=== PATIENT | female | born 1990 | race Caucasian/White ===

== ENCOUNTER 2016-09-05 21:21 | Outpatient (CLI) | payer MEDICAID ==
[2016-02-10 09:57] VITALS: BMI 25.8
[~2016-09-05 21:21] MED LIST: CLEOCIN HCL150 MG PO; HYDROCODONE-APA1 TAB PO; VIBRAMYCIN 100100 MG PO
[2016-09-05 21:56] LABS: BASOPHILS 0.1 % (0.0-2.0); EOSINOPHILS 2.2 % (0-7); HEMATOCRIT 33.2 % (36.0-48.0); IMMATURE GRANULOCYTES 0.6 % (0-5); LYMPHOCYTES 27.1 % (15-50); MCH 30.8 pg (26.0-34.0); MCHC 33.1 g/dL (31.0-37.0); MEAN PLATELET VOLUME 11.2 fL (7.4-10.4); MONOCYTES 8.6 % (2-11); NEUTROPHILS 61.4 % (40-80); PLATELET COUNT 186 10x3/uL (130-400); RBC 3.57 10x6/uL (4.00-5.40); RDW 14.3 % (11.5-14.5); WBC 8.2 10x3/uL (4.8-10.8)
[2016-09-05 22:05] LABS: APPEARANCE CLEAR (CLEAR); BILIRUBIN NEGATIVE (NEGATIVE); COLOR YELLOW (YELLOW); GLUCOSE NEGATIVE (NEGATIVE); KETONE NEGATIVE (NEGATIVE); LEUKOCYTE ESTERASE NEGATIVE (NEGATIVE); NITRITE NEGATIVE (NEGATIVE); PROTEIN NEGATIVE (NEGATIVE); SPECIFIC GRAVITY 1.015 (1.005-1.020); UROBILINOGEN NORMAL (NORMAL)
[2016-09-05 22:15] LABS: ALBUMIN 2.4 g/dL (3.4-5.0); ALKALINE PHOSPHATASE 53 U/L (46-116); ALT (SGPT) 28 U/L (10-68); BILIRUBIN - DIRECT 0.07 mg/dL (0.00-0.30); BILIRUBIN - INDIRECT 0.09 mg/dL (0.00-1.00); BILIRUBIN - TOTAL 0.16 mg/dL (0.2-1.3); CALC OSMOLALITY 285 mosm/kg (275-300); CALCIUM 7.8 mg/dL (8.5-10.1); CHLORIDE - SERUM 108 mmol/L (98-107); CREATININE - SERUM 0.6 mg/dL (0.6-1.3); GLUCOSE 127 mg/dL (74-106); POTASSIUM - SERUM 3.4 mmol/L (3.5-5.1); PROTEIN - SERUM 5.6 g/dL (6.4-8.2); SODIUM 143 mmol/L (136-145); UREA NITROGEN 11 mg/dL (7-18); URIC ACID 3.5 mg/dL (2.6-7.2); eGFR NON AFRICAN AMERICAN > 90 mL/min (90-120)
== END 2016-09-05 22:51 | disposition home or self-care (01) ==
LOC: D.LDO 21:21
PROVIDERS: Obstetrics & Gynecology
DX: O26.892 Other specified pregnancy related conditions, second trimester (principal); Z3A.26 26 weeks gestation of pregnancy; M79.605 Pain in left leg; M79.604 Pain in right leg; R10.9 Unspecified abdominal pain; R19.7 Diarrhea, unspecified

== ENCOUNTER 2016-11-12 16:06 | Outpatient (CLI) | payer MEDICAID ==
[2016-02-10 09:57] VITALS: BMI 25.8
== END 2016-11-13 15:15 | disposition home or self-care (01) ==
LOC: D.LD 16:06 → D.LDO 16:06 → D.LD 17:38 → D.LDO 11-13 15:15
DX: Z34.93 Encounter for supervision of normal pregnancy, unspecified, third trimester (principal); Z3A.35 35 weeks gestation of pregnancy; W19.XXXA Unspecified fall, initial encounter

== ENCOUNTER → 2016-11-21 16:31 | Outpatient (CLI) | payer MEDICAID ==
[2016-02-10 09:57] VITALS: BMI 25.8
== END | disposition home or self-care (01) ==
LOC: D.LDO 16:31
DX: Z34.83 Encounter for supervision of other normal pregnancy, third trimester (principal); Z3A.37 37 weeks gestation of pregnancy; R03.0 Elevated blood-pressure reading, without diagnosis of hypertension

== ENCOUNTER 2016-11-30 11:12 | Inpatient (IN) | payer MEDICAID ==
[~2016-11-30] VITALS: Ht 167.6 cm; Wt 123.8 kg
[2016-11-30 12:58] LABS: APPEARANCE HAZY (CLEAR); BILIRUBIN NEGATIVE (NEGATIVE); COLOR YELLOW (YELLOW); GLUCOSE NEGATIVE (NEGATIVE); KETONE NEGATIVE (NEGATIVE); LEUKOCYTE ESTERASE NEGATIVE (NEGATIVE); NITRITE NEGATIVE (NEGATIVE); PROTEIN NEGATIVE (NEGATIVE); SPECIFIC GRAVITY 1.015 (1.005-1.020); UROBILINOGEN NORMAL (NORMAL)
[2016-11-30 13:00] LABS: BACTERIA FEW /hpf (NONE SEEN); MUCUS >1+ /lpf (NONE SEEN); WHITE CELLS - URINE 0-5 /hpf (0-5)
[2016-11-30] MEDS ORDERED: ACETAMINOPHEN500 M1 (13:52)
[2016-11-30] MEDS ORDERED: PRENATAL COMPLE1 TAB PO (13:54)
[2016-11-30 14:33] LABS: BASOPHILS 0.1 % (0-2); EOSINOPHILS 1.3 % (0-7); HEMATOCRIT 36.4 % (36.0-48.0); HEMOGLOBIN 11.6 g/dL (12-16); IMMATURE GRANULOCYTES 1.1 % (0-5); MCH 28.7 pg (26.0-34.0); MCHC 31.9 g/dL (31.0-37.0); MCV 90.1 fL (80.0-100.0); MEAN PLATELET VOLUME 11.6 fL (7.4-10.4); NEUTROPHILS 69.5 % (40-80); PLATELET COUNT 214 10x3/uL (130-400); RBC 4.04 10x6/uL (4.00-5.40); RDW 13.9 % (11.5-14.5); WBC 8.5 10x3/uL (4.8-10.8)
[2016-11-30 14:40] LABS: CALC OSMOLALITY 273 mosm/kg (275-300); CALCIUM 8.4 mg/dL (8.5-10.1); CARBON DIOXIDE 22.5 mmol/L (21.0-32.0); CHLORIDE - SERUM 105 mmol/L (98-107); CREATININE - SERUM 0.5 mg/dL (0.6-1.3); GLUCOSE 89 mg/dL (74-106); POTASSIUM - SERUM 4.1 mmol/L (3.5-5.1); SODIUM 138 mmol/L (136-145); UREA NITROGEN 9 mg/dL (7-18); eGFR NON AFRICAN AMERICAN > 90 mL/min (90-120)
[2016-11-30 18:02] VITALS: BP 133/67; Ht 167.6 cm; Wt 123.8 kg
--- NOTE | 2016-11-30 18:29 | NUR ---
THE PATIENT REPORTS HER PAIN IS IMPROVING AND TOLERABLE
--- NOTE | 2016-11-30 18:30 | NUR ---
FUNDUS FIRM AT UMBILICUS WITH MODERATE LOCIA
[2016-11-30 18:46] VITALS: BP 124/88
--- NOTE | 2016-11-30 18:46 | NUR ---
PT RECEIVED TO ROOM 1273 FROM [facility] IN RECOVERY VIA BED. PT AAOx3, RATING PAIN 6/10. LEFT WRIST PIV INFUSING PITOCIN IN NS AT 125ML/H. OCCLUSIVE DRESSING OVER LOW TRANSVERSE ABD INCISION IS C/D/I. FF, ML, U/2. SMALL RUBRA LOCHIA WITHOUT CLOTS. HAMPTON CATH PLACED IN STAT LOCK ON INNER RIGHT THIGH. HAMPTON DRAINING CLEAR YELLOW URINE TO BEDSIDE DRAINAGE. SCD'S ON BILAT AND CONNECTED TO PUMP. PT INSTRUCTED ON INCENTIVE SPIROMETER AND COUGHING, UNDERSTANDING VERBALIZED. ICE PACK TO INCISION AND PT PROVIDED WITH SURGERY PILLOW TO BRACE INCISION. PT PROVIDED WITH ICE AND INSTRUCTED TO EAT SLOWLY AND REPORT ANY NAUSEA. UNDERSTANDING VERBALIZED. WILL REPORT OFF TO AWAITING PM SHIFT TO INITIATE SHEEP RANCHER LAUREN.
--- NOTE | 2016-11-30 18:55 | NUR ---
REPORT GIVEN TO PM SHIFT.
[2016-11-30 19:25] VITALS: BP 141/83; BP 150/77
--- NOTE | 2016-11-30 19:25 | NUR ---
RCVD PT FROM AM SHIFT. PT NEWLY ADMITTED FROM RECOVERY ROOM. PT SITTING UP IN BED HOB 45 DEGREES WITH INFANT SKIN TO SKIN. SEVERAL FAMILY MEMBERS IN ROOM. FAMILY ASKED TO LEAVE ROOM IN ORDER FOR THIS RN TO COMPLETE ASSESSMENT. FAMILY IS AGREEABLE AND COMPLIES. PT IS AAOX3 AND RATES PAIN 9/10 AT THIS TIME. VINYL TOP INSTALLER INITIATED AT THIS TIME WITH PLANS TO GIVE TORADOL LAUREN. BLE WITH LARGE DRESSING @ ABD WITH NO DRAINAGE NOTED ON DRESSING. PIV TO RT WRIST WITH NO ERYTHEMA OR EDEMA NOTED AT SITE. ICE PACK PLACED AT INCISION AREA. BREATH SOUNDS CLEAR & UNLABORED X2, BOWEL SOUNDS HYPOACTIVE X4. ADV PT ON CLEAR LIQUID DIET. PT VERBALIZED UNDERSTANDING. ADMIT HISTORY COMPLETED AT THIS TIME WELL. SCD'S PLACED @ BLE, CONNECTED TO PUMP AND PUMP FUNCTIONING PROPERLY. SMALL LOCHIA RUBRA NOTED ON PERIPAD WITH NO CLOTS NOTED. PT DENIES FURTHER NEEDS AT THIS TIME. WILL CONT. POC. BED LOW, WHEELS LOCKED, CL IN REACH, SIDE RAILS UP X2.
--- NOTE | 2016-11-30 19:40 | NUR ---
TORADOL 30MG/1ML GIVEN PER ORDERS. SEE EMAR. PT DENIES NEEDS AT THIS TIME.
[2016-11-30 20:25] VITALS: BP 136/74
--- NOTE | 2016-11-30 20:34 | NUR ---
CURRENT NS WITH 20 U PITOCIN INFUSION COMPLETE. OLD BAG DOWN, NEW BAG UP TO PRESENT TUBING. PT PRESSED RECRUITMENT OFFICER BUTTON AT THIS TIME. FAMILY REMAINS AT BEDSIDE. FAN PROVIDED PER PT REQUEST. ADV PT NOT TO PUT FAN DIRECTLY ON . PT VERBALIZED UNDERSTANDING AND DENIES FURTHER NEEDS.
[2016-11-30 20:57] VITALS: BP 144/75
--- NOTE | 2016-11-30 21:09 | NUR ---
FAMILY REMAINS IN ROOM, INFANT IN WARMER AT THIS TIME WITH FAMILY LOOKING ON. PT RATES CURRENT PAIN 6/10 AND TOLERABLE. PERIPAD CHANGED, WITH MOD. LOCHIA RUBRA NOTED AND 1 PEA SIZE CLOT. PERICARE DONE AT THIS TIME. ICE PACK PLACED BACK ON ABD AND BRACING WITH SMALL PILLOW TEACHING DONE. PT USED I.S. AND PULLED 2000ML. ADV PT TO DO I.S. 10X PER HR. PT VERBALIZED UNDERSTANDING. PT REPOSITIONED SELF UP IN BED WITH NO ASSISTANCE. BANANA POPSICLE PROVIDED PER PT REQUEST. PT DENIES FURTHER NEEDS AT THIS TIME.
--- NOTE | 2016-11-30 22:02 | NUR ---
SITTING UP IN BED WITH HOB AT 30 DEGREES. ABD. INCISION CLEAN AND DRY. LOCHIA RUBRA SCANT. PT. CHEERFUL. IV OF NS WITH 20U PITOCIN INFUSING AT 125CC/HR. HAMPTON PATENT AND DRAINING. SCDS ON AND FUNCTIONAL. PT. REQUESTING POPSICLE. SAME WILL BE GIVEN.
[2016-11-30 22:25] VITALS: BP 129/80
--- NOTE | 2016-11-30 23:00 | NUR ---
PT. AWAKE AND ORIENTED. ABD. INCISION CLEAN AND DRY. ICE CAP REFILLED AND PLACED AGAINST INCISION. INCENTIVE SPIROMETER USED AND OBTAINED 3000. SCDS ON AND FUNCTIONAL. CRANBERRY JUICE GIVEN AND ICE CHIPS SUPPLIED. PT. ENCOURAGED TO INCREASE FLUID INTAKE. LOCHIA RUBRA SCANT. FOB LYING ON SOFA WITH SKIN TO SKIN. IV OF NS WITH 20U PITOCIN ADDED INFUSING AT 125CC/HR.HAMPTON PATENT AND DRAINING.
--- NOTE | 2016-11-30 23:33 | NUR ---
PT RINGS CL. RN TO BEDSIDE. PT REQUESTS ASSISTANCE WITH BF. RANDELL NGUYEN RN NOTIFIED.
--- NOTE | 2016-12-01 00:02 | NUR ---
AT PRESENT. NBN NURSE ASSISTING PT. FOB REMAINS IN ROOM.
[2016-12-01 00:20] VITALS: BP 129/74
--- NOTE | 2016-12-01 00:25 | NUR ---
POSITION CHANGE FROM BACK TO RT. SIDE. SUPPORTED WITH PILLOWS. PT. DEMONSTRATED COUGHING AND DEEP BREATHING. FOB IN ROOM WITH PT. SCDS ON AND FUNCTIONAL. HAMPTON PATENT AND DRAINING.
--- NOTE | 2016-12-01 01:56 | NUR ---
PT LYING ON BACK AWAKE IN BED. PT DENIES PAIN OR NEEDS FOR PAIN MEDICATION AT THIS TIME. PT REPORTS PASSING MORE GAS AND HAVING BM STATING "I FEEL MUCH BETTER NOW THAT THINGS ARE MOVING." VSS. PT DENIES FURTHER NEEDS AT THIS TIME.
--- NOTE | 2016-12-01 02:04 | NUR ---
PT. LYING ON RT SIDE LOOKING AT PHONE. ASKED IF IT WAS TIME FOR INFANT. INFORMED PT. WAS UNSURE THAT WAS CHECKING ON HER. ASKED IF SHE WAS UNABLE TO SLEEP. PT. STATED THAT SHE HAD BEEN ASLEEP BUT HAS DREAMS WHERE SHE IS FALLING CAUSING HER TO JERK. DENIES ANY NEEDS AT THIS TIME.SCDS ON AND FUNCTIONAL. HAMPTON PATENT AND DRAINING.
--- NOTE | 2016-12-01 02:26 | NUR ---
PT C/O NAUSEA AND PAIN RATED 7/10. TORADOL 30 MG/1ML GIVEN PER ORDERS. SEE EMAR. ZOFRAN 4 MG/2ML GIVEN PER ORDERS FOR NAUSEA. PT REPOSITIONS SELF TO BACK WITH MINIMAL ASSISTANCE. NEW CHUCKS AND PERIPAD PLACED AT THIS TIME WITH SCANT LOCHIA RUBRA NOTED ON PERIPAD. Al ANNE RN TO ROOM WITH INFANT. PT DENIES FURTHER NEEDS AT THIS TIME. FOB REMAINS AT BEDSIDE. WILL CONT. TO MONITOR.
--- NOTE | 2016-12-01 03:00 | NUR ---
PAIN REASSESSMENT COMPLETE. PT SITTING UP IN BED WITH Al ANNE RN AT BEDSIDE ASSISTING WITH . PT REPORTS NAUSEA HAS SUBSIDED AND THAT PAIN IS "BETTER." PT DENIES FURTHER NEEDS AT THIS TIME.
--- NOTE | 2016-12-01 03:50 | NUR ---
TO PT. ROOM, PT. REPORTS THAT SHE WAS NAUSEATED WITH EMESIS WITH MINIMAL EMESIS. STATES SHE WOULD LIKE TO GET HAMPTON OUT AND AMBULATE. STATES SHE ALSO WANTS ABD. BINDER PRIOR TO AMBULATION AND MD IS AWARE.
--- NOTE | 2016-12-01 04:32 | NUR ---
NEW ORDERS RCVD PER DR PEREZ PT OCTOBER AMB. D/C HAMPTON CATH AND SL PIV. HAMPTON CATH REMOVED WITH CATH TIP INTACT. PT KATHRYN. WELL. 300 ML MARLON COLORED URINE NOTED IN UROMETER. PIV SL AT THIS TIME. ADV PT WILL BE SWITCHING TO PO MEDS. PT VERBALIZED UNDERSTANDING. INFANT LEFT IN ROOM WITH MOTHER. ID BANDS VERIFIED PER PROTOCOL. CONSENT FOR ABDOMINAL BINDER SIGNED. PT DENIES FURTHER NEEDS AT THIS TIME.
--- NOTE | 2016-12-01 05:53 | NUR ---
PT UP AND AMB IN ROOM. INFANT TO ROOM AFTER BLOOD SUGAR CHECK. DR PEREZ IN ROOM TO DISCUSS POC WITH PT. PT VERBALIZES UNDERSTANDING TO ALL. DR PEREZ REMOVED BIG BANDAGE OVER INCISION. STITCHES AND DERMABOND INTACT. INCISION C/D/I. PT DENIES FURTHER NEEDS AT THIS TIME.
[2016-12-01 06:32] LABS: BASOPHILS 0.3 % (0-2); EOSINOPHILS 1.2 % (0-7); HEMATOCRIT 34.5 % (36.0-48.0); IMMATURE GRANULOCYTES 0.6 % (0-5); LYMPHOCYTES 13.9 % (15-50); MCH 28.6 pg (26.0-34.0); MCHC 31.9 g/dL (31.0-37.0); MCV 89.8 fL (80.0-100.0); MEAN PLATELET VOLUME 11.7 fL (7.4-10.4); PLATELET COUNT 181 10x3/uL (130-400); RBC 3.84 10x6/uL (4.00-5.40); RDW 13.9 % (11.5-14.5); WBC 10.5 10x3/uL (4.8-10.8)
[2016-12-01 07:15] VITALS: BP 107/60
--- NOTE | 2016-12-01 07:49 | NUR ---
ASSESSMENT DONE. VERBAL RESPONSES APPRO TO QUESTIONS. UP AND ABOUT IN ROOM WHEN NEEDS TO VOID. NOTED 400CC URINE IN BATHROOM CONTAINER. PT STATES THAT WAS HER SECOND VOID. ABD INCISION CD&I. INSTRUCTED ON CARE OF INCISION. RATES PAIN A 7 ON SCALE OF 0-10.
--- NOTE | 2016-12-01 11:30 | NUR ---
AMBULATING IN HALLWAY. STATES SHE IS PASSING GAS.
--- NOTE | 2016-12-01 13:57 | NUR ---
UP AND ABOUT IN ROOM. DENIES WANTING PAIN MEDICATION EXCEPT THAT STATES WILL TAKE A IBUPROFEN WHEN NEXT POSSIBLE TIME. NO REQUESTS.
[2016-12-01 13:59] VITALS: BP 123/81
--- NOTE | 2016-12-01 14:08 | NUR ---
entered room with jarvis. pt states that she changes her mind and does want to take a norco at this time. co pain when moving about.
--- NOTE | 2016-12-01 14:17 | NUR ---
AGAIN PT REQUESTING SALINE LOCK OUT- SITE LOOKS WNL. SALINE LOCK REMOVED PER PT REQUEST. BANDAIDE APPLIED.
[2016-12-01 16:13] LABS: BASOPHILS 0.3 % (0-2); HEMATOCRIT 38.4 % (36.0-48.0); HEMOGLOBIN 12.2 g/dL (12-16); IMMATURE GRANULOCYTES 0.4 % (0-5); LYMPHOCYTES 16.2 % (15-50); MCH 28.7 pg (26.0-34.0); MCHC 31.8 g/dL (31.0-37.0); MCV 90.4 fL (80.0-100.0); MEAN PLATELET VOLUME 11.9 fL (7.4-10.4); MONOCYTES 10.2 % (2-11); NEUTROPHILS 70.9 % (40-80); PLATELET COUNT 223 10x3/uL (130-400); RBC 4.25 10x6/uL (4.00-5.40); WBC 10.3 10x3/uL (4.8-10.8)
--- NOTE | 2016-12-01 18:22 | NUR ---
PT REQUESTING PAIN MEDICATION- RATES PAIN A 6 WHEN UP AND ABOUT. NORCO GIVEN PER REQUEST.
[2016-12-01 18:46] VITALS: BP 115/70
--- NOTE | 2016-12-01 19:33 | NUR ---
RCVD PT FROM AM SHIFT. PT STANDING IN BATHROOM REPORTING SHE JUST GOT OUT OF THE SHOWER. S.O. IN ROOM HELPING AT THIS TIME. PT DENIES PAIN, DIZZINESS OR NEEDS. PT REPORTS VOIDING OK WITH NO CLOTS. WILL CONT. WITH ASSESSMENT WHEN PT IS DRESSED.
--- NOTE | 2016-12-01 20:01 | NUR ---
PT TRANSFERRED TO ROOM 1257 AMB AT THIS TIME WITH STEADY GAIT NOTED AND IN NO DISTRESS. PT AND FAMILY ORIENTED TO ROOM. PT DENIES NEEDS AT THIS TIME.
[2016-12-01 21:33] VITALS: BP 126/74
--- NOTE | 2016-12-01 21:38 | NUR ---
PT RECEIVED TO MY CARE IN L&D 1257. PT SITTING IN CHAIR HOLDING INFANT IN NO ACUTE DISTRESS. PT TRANSFERED SELF TO BED FOR CENTRAL COMMUNICATIONS SPECIALIST. PT IS A 26YO G6NOW WITH REPEAT C/S YESTERDAY @ 38.2 WKS GESTATION, VIABLE FEMALE INFANT. AAOX3. HR REGULAR. LUNGS CTAB. ABDOMEN SOFT AND NON TENDER. BS ACTIVE TIMES 4. PT STATES THAT SHE HAS NOT PASSED GAS SINCE HER C/S AND HAS NOT HAD A BM SINCE C/S. LOWER ABDOMINAL INCISION NOTED. STERI STRIPS IN PLACE. NO REDNESS, EDEMA, OR DRAINAGE NOTED. TO SITE. FUNDUS NOT PALPATED. LOCHIA RUBRA SCANT. JOHNNY PAD AND PANTIES IN PLACE. 2+ LOWER EXTREMITY EDEMA NOTED AND 1+ UPPER EXTREMITY EDEMA NOTED. NO IV ACCESS AT THIS TIME. PT C/O PAIN, RATES 6/10, REQUESTS IBUPROFEN. PROVIDED. PT DENIES ANY FURTHER NEEDS AT THIS TIME. PT ASSISTED TO CHAIR IN ROOM TO CONT TO BF . BED IN LOW POSITION, SIDE RAILS UP TIMES 2, CALL LIGHT AND PHONE IN REACH. SO REMAINS AT PT BS FOR SUPPORT AND ASSISTANCE. INFANT REMAINS AT PT BS FOR COUPLET CARE. WILL CONT TO MONITOR PT STATUS.
--- NOTE | 2016-12-01 22:18 | NUR ---
NORCO 10/325MG GIVEN FOR PAIN RATED 7/10. PT SITTING IN RECLINER IN ROOM WITH INFANT ON CHEST. PT REQUESTS THIS RN TO SHOW FOB HOW TO SWADDLE. SAME PROVIDED. PT DENIES FURTHER NEEDS AT THIS TIME.
--- NOTE | 2016-12-01 23:02 | NUR ---
PAIN REASSESSMENT COMPLETE. PT STATES "I'M NOT REALLY FEELING ANY PAIN LONG I'M LYING DOWN." PT DENIES NEEDS AT THIS TIME. WILL CONT. TO MONITOR.
--- NOTE | 2016-12-02 01:13 | NUR ---
INFANT TRANSPORTED TO ROOM VIA OPEN CRIB. BANDS VERIFIED PER PROTOCOL. PT DENIES NEEDS AT THIS TIME.
--- NOTE | 2016-12-02 03:05 | NUR ---
NORCO 10/325 MG X1 TAB AND MOTRIN 600MG X1 TAB GIVEN PER PT REQUEST BY Srikanth MARTÍNEZ RN. SEE EMAR.
--- NOTE | 2016-12-02 05:08 | NUR ---
ROUNDS MADE. PT RESTING, EYES CLOSED. RESP EVEN & UNLABORED.
[2016-12-02 06:15] LABS: RAPID PLASMA REAGIN Non Reactive (Non Reactive)
--- NOTE | 2016-12-02 07:19 | NUR ---
ASSUMED CARE OF THIS PATIENT. CURRENTLY SLEEPING, SIDE RAILS UP. WILL COMPLETE ASSESSMENT WHEN AWAKE AND ANTICIPATE DC HOME TODAY.
[2016-12-02 08:02] VITALS: BP 133/78
--- NOTE | 2016-12-02 09:07 | NUR ---
DR PEREZ VISITED PATIENT. REQUESTED MOTRIN FOR CRAMPING.
--- NOTE | 2016-12-02 09:14 | NUR ---
MOTRIN 600 MG GIVEN PO FOR CRAMPING. STATES "I THINK IT MIGHT BE GAS TOO." SAYS SHE HAS PASSED SOME GAS, DRINKING HOT TEA AND AMBULATED. DISCUSSED RELIEF MEASURES TO INCLUDE LAYING ON LEFT SIDE WITH RIGHT LEG UP. ASSISTED TO THIS POSITION. SIDE RAILS UP X 2, CALL LIGHT IN REACH. IN NURSERY. LIGHTS ON LOW. PLANS TO TAKE A NAP NOW AND SHOWER LATER. DESIRES TDAP. PLANS TO GO HOME LATER THIS AFTERNOON.
--- NOTE | 2016-12-02 09:45 | NUR ---
TDAP GIVEN IM, AFTER CONSENT IN LEFT DELTOID WITHOUT DIFFICULTY. PT C/O "WHELP" AT RIGHT WRISTS, HOSPITAL BANDS REMOVED EARLIER SECONDARY TO SLIGHT ERRYTHEMA UNDER BANDS. DR PEREZ NOTIFIED. ORDERS RECEIVED.
--- NOTE | 2016-12-02 10:14 | NUR ---
SITTING UP IN CHAIR . COOL COMPRESS APPLIED TO RIGHT WRIST. INSTRUCTED NOT TO RUB OR SCRATCH THAT WILL CAUSE INCREASED HISTAMINE REACTION. INFORMED THAT DR PEREZ HAS ORDERED HYDROCORTISONE CREAM. PT SAYS SHE DID "PASS GAS". FOB IN ROOM.
--- NOTE | 2016-12-02 10:52 | NUR ---
THIN LAYER OF HYDROCORTISONE CREAM WAS APPLIED TO RIGHT WRIST STATES "THAT FEELS BETTER ALREADY". INSTRUCTED OK FOR US IN . INSTRUCTED HAS BEEN ORDERED FOUR TIMES A DAY NEEDED. SITTING IN CHAIR HOLDING .
--- NOTE | 2016-12-02 11:47 | NUR ---
AMBULATING IN ROOM. INFORMATION GIVEN ON /DIET/BREAST CARE. PT ASKED ABOUT BLEEDING. DISCUSSED ABN VS NORMAL LOCHIA. VERBALIZED UNDERSTANDING. DISCUSSED METHODS FOR PREVENTION OF CONSTIPATION. NO ADDITIONAL QUESTIONS ASKED AT THIS TIME. PLANS TO NAP PRIOR TO GOING HOME.
--- NOTE | 2016-12-02 14:42 | NUR ---
REQUESTED PAIN MEDICATION FOR 6/10 ABDOMINAL PAIN. NORCO 10 MG GIVEN PO FOR RELIEF. PLANS TO BREASTFEED INFANT AND SAYS SHE WILL READY TO BE DC'D HOME. VERBAL AND WRITTEN DC INSTRUCTIONS GIVEN. QUESTIONED ANSWERED. C/O SWELLING IN RIGHT AND LEFT FOREFINGERS BUT SAYS THAT SWELLING RIGHT WRIST IS BETTER BUT STILL THERE. ALSO HAS NOTED SOME ITCHING OF AREAS. HAS HX OF FEELING THESE SYMPTOMS WHEN A PATIENT AT THIS HOSPITAL. HAS LATEX ALLERGY. NO KNOW EXPOSURE TO LATEX WHILE HERE. WILL CONTACT MD TO INFORM HIM OF PT COMPLAINTS. ALSO INSTRUCTED PT ON IMPORTANCE OF NOT SCRATCHING WHICH WILL INCREASE HISTAMINE REACTION WITH SWELLING AND TO USE COOL COMPRESSES FOR RELIEF.
--- NOTE | 2016-12-02 14:55 | NUR ---
NOTIFIED DR PEREZ OF PATIENT COMPLAINTS INCLUDING SWELLING OF INDEX FINGERS. RECOMMENDS PT TO USE HYDROCORTISONE OR BENADRY CREAM FOUR TIMES A DAY NEEDED. ALSO BEST TO DC FROM HOSPITAL SOON POSSIBLE AND IF WORSENING SYMPTOMS TO REPORT TO ER FOR EVALUATION.
--- NOTE | 2016-12-02 15:05 | NUR ---
PATIENT NOTIFIED OF DR PEREZ'S RECOMMENDATIONS. DISCUSSED RESPIRATORY DANGER SIGNS AND WORSENING ALLERGIC SYMPTOMS. VERBALIZED UNDERSTANDING. ALSO DISCUSSED DEPENDENT EDEMA IN PERIOD AND RELIEF MEASURES. VERBALIZED UNDERSTANDING. PLANS TO BREASTFEED AT THIS TIME AND DC HOME. HAS PRESCRIPTIONS AND WRITTEN INSTRUCTIONS.
--- NOTE | 2016-12-02 17:08 | NUR ---
INFANT APPEARS TO BE CARSEAT APPROPRIATELY. PT TO W/C. PLACED IN CARSEAT IN PT'S LAP. PT DISCHARGED HOME.TRANSPORTED VIA W/C TO AWAITING CAR TO BE DRIVEN HOME BY SIG OTHER.
== END 2016-12-02 17:10 | disposition home or self-care (01) | DRG 765 ==
LOC: D.LDO 11:12 → D.LD 15:50
PROVIDERS: ADMIT Obstetrics & Gynecology
PROC: 10D00Z1 Extraction of Products of Conception, Low, Open Approach (ICD-10-PCS; principal; 2016-11-30 15:00)
DX: O34.211 Maternal care for low transverse scar from previous cesarean delivery (principal); Z68.41 Body mass index [BMI] 40.0-44.9, adult; E66.01 Morbid (severe) obesity due to excess calories; Z3A.38 38 weeks gestation of pregnancy; Z37.0 Single live birth

== ENCOUNTER 2018-02-05 15:58 | Emergency (ER) | payer MEDICAID ==
[~2018-02-05] VITALS: Ht 167.6 cm; Wt 113.6 kg
[~2018-02-05 15:58] MED LIST changes: +ACETAMINOPHEN500 M1; +PRENATAL COMPLE1 TAB PO
[2018-02-05 16:03] VITALS: Ht 167.6 cm; Wt 113.6 kg
[2018-02-05 16:51] LABS: BASOPHILS 0.3 % (0-2); EOSINOPHILS 2.2 % (0-7); HEMATOCRIT 44.2 % (36.0-48.0); HEMOGLOBIN 14.6 g/dL (12-16); IMMATURE GRANULOCYTES 0.1 % (0-5); LYMPHOCYTES 33.3 % (15-50); MCH 28.8 pg (26.0-34.0); MCV 87.2 fL (80.0-100.0); MEAN PLATELET VOLUME 11.1 fL (7.4-10.4); MONOCYTES 8.5 % (2-11); NEUTROPHILS 55.6 % (40-80); PLATELET COUNT 264 10x3/uL (130-400); RBC 5.07 10x6/uL (4.00-5.40); RDW 13.8 % (11.5-14.5); WBC 9.9 10x3/uL (4.8-10.8)
[2018-02-05 17:06] LABS: ALBUMIN 3.8 g/dL (3.4-5.0); ALKALINE PHOSPHATASE 71 U/L (46-116); ALT (SGPT) 29 U/L (10-68); BILIRUBIN - TOTAL 0.28 mg/dL (0.2-1.3); CALC OSMOLALITY 279 mosm/kg (275-300); CALCIUM 8.7 mg/dL (8.5-10.1); CARBON DIOXIDE 30.6 mmol/L (21.0-32.0); CHLORIDE - SERUM 102 mmol/L (98-107); CREATININE - SERUM 0.8 mg/dL (0.6-1.3); GLUCOSE 96 mg/dL (74-106); POTASSIUM - SERUM 3.8 mmol/L (3.5-5.1); PROTEIN - SERUM 7.2 g/dL (6.4-8.2); SODIUM 140 mmol/L (136-145); UREA NITROGEN 15 mg/dL (7-18); eGFR NON AFRICAN AMERICAN 90 mL/min (90-120)
[2018-02-05 17:33] LABS: APPEARANCE CLEAR (CLEAR); BILIRUBIN NEGATIVE (NEGATIVE); COLOR YELLOW (YELLOW); GLUCOSE NEGATIVE (NEGATIVE); KETONE NEGATIVE (NEGATIVE); NITRITE NEGATIVE (NEGATIVE); PROTEIN NEGATIVE (NEGATIVE); UROBILINOGEN NORMAL (NORMAL)
[2018-02-05 17:40] LABS: BACTERIA FEW /hpf (NONE SEEN); EPITHELIAL CELLS OCC /hpf (0-5); RED CELLS - URINE 0-5 /hpf (0-5); WHITE CELLS - URINE 0-5 /hpf (0-5)
[2018-02-05 17:54] LABS: HCG URINE NEGATIVE (NEGATIVE)
[2018-02-05] MEDS ORDERED: MACROBID100 MG PO (19:54)
[2018-02-05] MEDS ORDERED: ROBAXIN500 MG PO (19:54)
[2018-02-05] MEDS ORDERED: ULTRAM50 MG PO (19:54)
[2018-02-05 20:18] VITALS: BP 117/84
== END 2018-02-05 20:19 | disposition home or self-care (01) ==
LOC: D.ER 15:58
PROVIDERS: Emergency Medicine
DX: R10.9 Unspecified abdominal pain (principal); N39.0 Urinary tract infection, site not specified; M54.5 Low back pain; Z85.828 Personal history of other malignant neoplasm of skin